=== PATIENT | male | born 1990 | race African-American/Black ===

== ENCOUNTER 2016-12-08 20:21 | Emergency (ER) | payer SELFPAY ==
[~2016-12-08 20:21] MED LIST: BENTYL10 MG PO; IBUPROFEN800 MG PO; PEN-VEE K PO; PEPCID AC20 M2 PO; PHENERGAN25 M1 RC; ULTRAM PO; VICODIN PO
== END 2016-12-08 21:47 | disposition left against medical advice (07) ==
LOC: CED 20:21
DX: Z53.21 Procedure and treatment not carried out due to patient leaving prior to being seen by health care provider (principal)